=== PATIENT | male | born 1995 | race Hispanic/Latino ===

== ENCOUNTER 2019-02-25 14:20 | Emergency (ER) | payer SELFPAY ==
[2019-02-25 15:01] VITALS: BP 111/65
--- NOTE | 2019-02-25 15:01 | Emergency Department Report ---
Blank Doc - Documentation Documentation: This is a 23-year-old male that presents with left arm pain and ecchymosis. This initial assessment/diagnostic orders/clinical plan/treatment(s) is/are subject to change based on patient's health status, clinical progression and re- assessment by fellow clinical providers in the ED. Further treatment and workup at subsequent clinical providers discretion. Patient/guardians urged not to elope from the ED as their condition may be serious if not clinically assessed and managed. Initial orders include: 1- Patient sent to [facility] for further evaluation and treatment 2- US doppler
--- NOTE | 2019-02-25 16:10 | Vascular Lab Report ---
LEFT UPPER EXTREMITY VENOUS DOPPLER ULTRASOUND HISTORY: Left upper extremity pain and swelling for 6 days COMPARISON: None. TECHNIQUE: Grayscale, color and spectral Doppler imaging of the venous system of the left upper extre mity was performed. FINDINGS: Internal Jugular Vein: Normal grayscale appearance and flow. Subclavian Vein: Normal grayscale appearance and flow. Axillary Vein: Normal venous flow, compressibility and augmentation. Brachial vein: Normal venous flow, compressibility and augmentation. Basilic vein: Normal venous flow, compressibility and augmentation. Cephalic vein: Normal venous flow, compressibility and augmentation. Additional Findings: None. IMPRESSION: 1. No sonographic evidence of deep venous thrombosis in the left upper extremity. Signer Name: Abraham Fraire Jr, MD Signed: 02/25/2019 4:06 PM Workstation Name: [id number]
--- NOTE | 2019-02-25 17:19 | Emergency Department Report ---
Upper Extremity - HPI Chief Complaint: Extremity Problem,Nontraumatic Stated Complaint: (L) ARM PAIN/BRUISE Time Seen by Provider: 02/25/19 15:00 Upper Extremity: Left Forearm Occurred When: 5 Days Mechanism: Other (patient was donating plasma on 02/21/2000) Symptoms: Yes Bruising/Ecchymosis, No Pain with Movement, No Deformity, No Limited Range of Movement, No Numbness, No Weakness, No Swelling, No Laceration or Abrasion Other History: 23-year-old male presents to the emergency room for left arm pain. An bruising. Patient states that he donated plasma on 02/20/2019 and sustained a bruise. Patient reports that it is sore but has improved. Patient denies any trauma denies any drug use has no past medical history takes no medications on a daily basis and has no known drug allergies. ED Review of Systems ROS: Stated complaint: (L) ARM PAIN/BRUISE Other details as noted in HPI Comment: All other systems reviewed and negative ED Past Medical Hx - Past Medical History Previous Medical History?: No - Surgical History Past Surgical History?: No - Social History Smoking Status: Never Smoker Substance Use Type: None - Medications Home Medications: Home Medications Medication Instructions Recorded Confirmed Last Taken Type HYDROcodone/APAP 5-325 [[place] 1 each PO Q6HR PRN #12 tablet 07/23/15 Unknown Rx 5/325] Hyoscyamine Subl [Levsin Sl 0.125 0.125 mg PO Q6HR PRN #20 tab 07/23/15 Unknown Rx TAB] raNITIdine HCl [Zantac] 150 mg PO Q12H #30 tablet 07/23/15 Unknown Rx Upper Extremity Exam - Exam General: Vital signs noted. No distress. Alert and acting appropriately. Arm Exam: No Arm/Humerus Tenderness, No Arm Deformity Forearm: Yes Forearm Tenderness (ecchymosis to left forearm with various stages of healing), No Forearm Deformity, No Pain with Pronation, No Pain with Supination Wrist: Yes Normal ROM in Wrist, No Wrist Tenderness, No Wrist Deformity, No Snuffbox Tenderness, No Pain with Axial Thumb Compression Hand: Yes Normal ROM in Digit(s), No Hand Tenderness, No Hand Deformity, No Digit Tenderness, No Digit(s) Deformity, No Tendon Dysfunction ED Course Vital Signs 02/25/19 15:00 Temperature 98.7 F Pulse Rate 69 Respiratory 16 Rate Blood Pressure 111/65 O2 Sat by Pulse 99 Oximetry ED Medical Decision Making - Radiology Data Radiology results: report reviewed Sonography report shows no evidence of DVT - Medical Decision Making 23-year-old male presents to the emergency room for left arm pain. An bruising. Patient states that he donated plasma on 02/20/2019 and sustained a bruise. Patient reports that it is sore but has improved. Patient denies any trauma denies any drug use has no past medical history takes no medications on a daily basis and has no known drug allergies. Tests the patient that his hematoma/ecchymosis area is actually healing as there is various stages of green purple and blue. Patient agree. Discussed with patient he can take Tylenol for pain management. Critical care attestation.: If time is entered above; I have spent that time in minutes in the direct care of this critically ill patient, excluding procedure time. ED Disposition Clinical Impression: Ecchymosis of forearm Disposition: DC-01 TO HOME OR SELFCARE Is pt being admited?: No Does the pt Need Aspirin: No Condition: Stable Additional Instructions: You can use warm heat to bruise area. You can also take Tylenol for pain management. Referrals: TITO LOO MD [Primary Care Provider] - 3-5 Days
== END 2019-02-25 17:25 | disposition home or self-care (01) ==
LOC: ED 14:20
DX: S50.12XA Contusion of left forearm, initial encounter (principal); Z79.899 Other long term (current) drug therapy; X58.XXXA Exposure to other specified factors, initial encounter; Y93.89 Activity, other specified; Y92.89 Other specified places as the place of occurrence of the external cause; Y99.8 Other external cause status